=== PATIENT | female | born 1985 | race Caucasian/White ===

== ENCOUNTER 2017-01-22 00:43 | Emergency (ER) | payer SELFPAY ==
[2017-01-22 00:46] VITALS: BP 102/67; BMI 24.9
[2017-01-22] MEDS ORDERED: XYLOCAINE VISCOUS MT ONE (00:55)
[2017-01-22] MEDS ORDERED: XYLOCAINE VISCOUS ONE (00:57)
--- NOTE | 2017-01-22 01:04 | DR.GENAD ---
HPI - PCP Primary Care Physician: [email or web address] - HPI Comment HPI Comment: patient tried to remove bug with qtip and water but had no luck. - Complaint/Symptoms Chief Complaint:: bug in my ear - Nurses notes reviewed Nurses Notes Review: Yes - Source History Provided: Patient - Mode of Arrival Mode of Arrival: Ambulatory - Timing Onset of Chief Complaint: 01/22/17 Came on: Suddenly - Duration Duration: Constant Duration: Minutes - Location Location: right ear - Severity Severity: Moderate - Associated Signs and Symptoms Associated Signs and Symptoms: pain PMH - PMH Past Medical History: No Past Surgical History: Yes Surgical History: Cholecystectomy - Family History History of Family Medical Conditions: No - Social History Type of Tobacco Use: Cigarettes Alcohol Use: None Do you use any recreational Drugs:: No Lives With: Family Lives Where: Home - infectious screening Have you traveled outside the country in the last 6 months?: No Isolation: Standard ROS - Review of Systems Constitutional: No Symptoms Reported Eyes: No Symptoms Reported ENTM: Ear Pain (bug in right ear) Respiratoy: No Symptoms Reported Cardiovascular: No Symptoms Reported Gastrointestinal/Abdominal: No Symptoms Reported Genitourinary: No Symptoms Reported Neurological: No Symptoms Reported Musculoskeletal: No Symptoms Reported Integumentary: No Symptoms Reported Hematologic/Lymphatic: No Symptoms Reported Endocrine: No Symptoms Reported Psychiatric: No Symptoms Reported PE - Vital Signs Vitals: Temperature 98.0 F Pulse Rate 76 Respiratory Rate 16 Blood Pressure [Left Arm] 105/59 Blood Pressure 102/67 O2 Sat by Pulse Oximetry 100 - General Limitations: No Limitations General Appearance: Alert, In No Apparent Distress - Head Head Exam: Normal Inspection - Eyes Eye exam: Normal Appearance, EOMI. negative: Scleral Icterus, Conjunctival Injection - ENT ENT Exam: Normal External Ear Exam, Other External Ear Exam: Normal External Inspection. negative: Auricular Trauma, Mastoid Tenderness, External Tenderness TM/Canal Exam: Right Erythema, Right Canal Tenderness Nose Exam: Normal Nose Exam - Neck Neck Exam: Normal Inspection, Full ROM, Trachea Midline - Respiratory Respiratory Exam: negative: Accessory Muscle Use, Respiratory Distress - Extremities Extremities Exam: Normal Inspection, Full ROM - Back Back Exam: Normal Inspection - Neurologic Neurological Exam: Alert, Oriented X3, CN II-XII Intact - Psychiatric Psychiatric Exam: Anxious - Skin Skin Exam: Intact, Normal Color Course - Treatment Treatment: unable to see bug in ear, lidocaine placed in ear and will irragate to try to remove bug.No bug seen after irrigation, will Rx: cortisporin otic and refer to ENT - Diagnosis Discharge Problem: Foreign body accidentally entering opening of body cavity - Discharge Plan Condition: Stable Prescriptions: [id number] (Otic) [Cortisporin Otic Susp] 3 drop AFF EAR TID #1 ea - Follow ups/Referrals Follow ups/Referrals: [facility],None [Primary Care Provider] - 3 days - Instructions
[2017-01-22] MEDS ORDERED: CORTISPORIN OTIC SUSP ONE (01:33)
[2017-01-22] MEDS ORDERED: CORTISPORIN OTIC SUSP RIGHT EAR ONE (01:39)
== END 2017-01-22 01:42 | disposition home or self-care (01) ==
LOC: ER 00:43
PROC: 3E1B38X Irrigation of Ear using Irrigating Substance, Percutaneous Approach, Diagnostic (ICD-10-PCS; principal; 2017-01-22)
DX: T16.1XXA Foreign body in right ear, initial encounter (principal)
CPT/HCPCS: 99282